=== PATIENT | female | born 1965 | race African-American/Black ===

== ENCOUNTER 2019-09-15 00:02 | Emergency (ER) | payer MEDICAID ==
[~2019-09-15] VITALS: Ht 162.6 cm; Wt 65.0 kg
[2019-09-15 00:10] VITALS: Ht 162.6 cm; Wt 65.0 kg
[2019-09-15] MEDS ORDERED: LISINOPRIL10 MG PO (00:11)
[2019-09-15 00:27] LABS: BASOPHILS 0.4 % (0-2); HEMATOCRIT 35.3 % (36.0-48.0); HEMOGLOBIN 11.4 g/dL (12-16); IMMATURE GRANULOCYTES 0.2 % (0-5); LYMPHOCYTES 26.3 % (15-50); MCH 32.1 pg (26.0-34.0); MCHC 32.3 g/dL (31.0-37.0); MCV 99.4 fL (80.0-100.0); MEAN PLATELET VOLUME 9.6 fL (7.4-10.4); MONOCYTES 10.8 % (2-11); NEUTROPHILS 61.3 % (40-80); RBC 3.55 10x6/uL (4.00-5.40); RDW 12.8 % (11.5-14.5); WBC 5.1 10x3/uL (4.8-10.8)
[2019-09-15 00:28] LABS: PLATELET COUNT 288 10x3/uL (130-400)
[2019-09-15 00:40] LABS: ALBUMIN 3.1 g/dL (3.4-5.0); ANION GAP 11.3 mmol/L (8-16); BILIRUBIN - TOTAL 0.29 mg/dL (0.2-1.3); CARBON DIOXIDE 28.7 mmol/L (21.0-32.0); CREATININE - SERUM 1.2 mg/dL (0.6-1.3); MAGNESIUM - SERUM 1.9 mg/dL (1.8-2.4); PHOSPHOROUS 3.1 mg/dL (2.5-4.9)
[2019-09-15 01:00] VITALS: BP 142/99
== END 2019-09-15 00:54 | disposition home or self-care (01) ==
LOC: D.ER 00:02
PROVIDERS: Family Medicine
DX: E87.6 Hypokalemia (principal); G47.62 Sleep related leg cramps; I10 Essential (primary) hypertension; M54.9 Dorsalgia, unspecified